=== PATIENT | female | born 1960 | race Caucasian/White ===

== ENCOUNTER 2021-10-21 11:20 | Inpatient (IN) | payer OTHER ==
[~2021-10-21] VITALS: Ht 165.1 cm; Wt 74.4 kg
--- NOTE | 2021-10-21 11:20 | NUR ---
PT ERMELINDA FROM [facility] SENT BY C/O SOB SINCE SUNDAY... PT IS AAOX3, NOT IN RESPIRATORY DISTRESS, HOOKED TO O2 AT 3LPM VIA NC AND HOOKED TO SHOE SPRAYER, KEPT RESTED AND COMFORTABLE. WILL CONTINUE TO MONITOR.
--- NOTE | 2021-10-21 12:00 | NUR ---
IV LINE ESTABLISHED BLOOD DRAWN AND SENT TO LAB.
[2021-10-21] MEDS ORDERED: CITR473S PO (12:20)
[2021-10-21] MEDS ORDERED: MONT10TA22 PO (12:20)
[2021-10-21] MEDS ORDERED: NIFE-57 PO (12:20)
[2021-10-21] MEDS ORDERED: METO5TAB7 PO (12:20)
[2021-10-21] MEDS ORDERED: CALC0.253 PO (12:20)
[2021-10-21] MEDS ORDERED: AMIT10TA6 PO (12:20)
[2021-10-21] MEDS ORDERED: ASCO500C17 PO (12:20)
[2021-10-21] MEDS ORDERED: INSU100V7 SQ (12:20)
[2021-10-21] MEDS ORDERED: FERR325T23 PO (12:20)
[2021-10-21] MEDS ORDERED: HYDR-4077 PO (12:20)
[2021-10-21] MEDS ORDERED: METO25TA6 PO (12:20)
[2021-10-21] MEDS ORDERED: INSU100V39 SQ (12:20)
[2021-10-21] MEDS ORDERED: POLY17PO4 PO (12:20)
[2021-10-21] MEDS ORDERED: FEBU40TA3 PO (12:20)
[2021-10-21] MEDS ORDERED: FURO-144 PO (12:20)
[2021-10-21] MEDS ORDERED: FOLI0.8T2 PO (12:20)
[2021-10-21] MEDS ORDERED: FAMO-131 PO (12:20)
[2021-10-21] MEDS ORDERED: PRAV80TA21 PO (12:20)
[2021-10-21] MEDS ORDERED: APIX2.5T PO (12:20)
[2021-10-21] MEDS ORDERED: SEVE800T8 PO (12:20)
[2021-10-21 12:37] LABS: BASOPHILS # (AUTO) 0.1 K/uL (0.0-0.2); EOSINOPHILS % (AUTO) 1.9 % (0.0-6.0); HEMATOCRIT 26 % (33-45); HEMOGLOBIN 8.3 g/dL (11.5-14.8); LYMPHOCYTES # (AUTO) 1.2 K/uL (0.8-4.8); LYMPHOCYTES % (AUTO) 21.5 % (20.0-44.0); MEAN CORPUSCULAR HGB CONC 32 g/dl (31.0-36.0); MEAN CORPUSCULAR VOLUME 86 fL (82-100); MONOCYTES # (AUTO) 0.3 K/uL (0.1-1.30); MONOCYTES % (AUTO) 6.3 % (2.0-12.0); NEUTROPHILS # (AUTO) 3.8 K/uL (1.8-8.9); NEUTROPHILS % (AUTO) 69.3 % (43.0-81.0); PLATELET COUNT (AUTO) 228 K/uL (150-450); RED BLOOD CELL COUNT(AUTO) 3.07 MIL/uL (4.0-5.2); WHITE BLOOD COUNT (AUTO) 5.4 K/uL (4.3-11.0)
[2021-10-21 12:40] LABS: CALCIUM, SERUM 8.5 mg/dL (8.5-10.1); CARBON DIOXIDE 35 mmol/L (21-32); CHLORIDE 100 mmol/L (98-107); CREATININE 4.9 mg/dL (0.6-1.3); GLUCOSE 143 mg/dL (74-106); POTASSIUM 3.9 mmol/L (3.5-5.1); SODIUM SERUM 141 mmol/L (136-145); UREA NITROGEN, BLOOD 60 mg/dL (7-18)
[2021-10-21 12:56] LABS: ALANINE AMINOTRANSFERASE 21 U/L (12-78); ALBUMIN 2.8 g/dL (3.4-5.0); ALKALINE PHOSPHATASE 77 U/L (46-116); ASPARTATE AMINOTRANSFERASE 16 U/L (15-37); BILIRUBIN,DIRECT 0.2 mg/dL (0.0-0.2); BILIRUBIN,TOTAL 0.4 mg/dL (0.2-1.0)
[2021-10-21 13:16] LABS: TOTAL PROTEIN, SERUM 7.4 g/dL (6.4-8.2)
[2021-10-21] MEDS ORDERED: ASPIRIN 81 MG TAB.CHEW PO ONE (13:30)
[2021-10-21] MEDS ORDERED: ASPIRIN 81 MG TAB.CHEW ONE (13:58)
--- NOTE | 2021-10-21 14:56 | NUR ---
NURSING SUP GAVE 106-1.
--- NOTE | 2021-10-21 15:20 | NUR ---
RN NOTES RECEIVED PATIENT VIA GURNEY AT 1520 PM FROM ER. PATIENT NEEDS TO GET STAT DIALYSIS. PATIENT SIGNED THE CONSENT, DR HICKS GAVE THE ORDER TO START THE DIALYSIS. NO PAIN NOTED. O2 NOTED 96 % AT 4 LITER /MIN. VITAL SIGNS WITHIN NORMAL RANGES. IV ACCESS NOTED RIGHT AC ОЛЕГ #18. LEFT UPPER CHEST DIALYSIS SITE. ALL NEEDS ATTENDED. BED IN THE LOWEST POSITION AND LOCKED. SIDE RAILS UP TIMES 2. TABLE AND CALL LIGHT IN REACH. WILL CONTINUE TO MONITOR.
--- NOTE | 2021-10-21 15:25 | NUR ---
REPORT GIVEN TO MARIO ALBERTO LEAL FOR MARTHA.
[2021-10-21 16:00] VITALS: BP 161/82
[2021-10-21] MEDS ORDERED: ONDANSETRON HCL/PF 4 MG/2 ML VIAL IVP PRN (17:00)
[2021-10-21] MEDS ORDERED: ACETAMINOPHEN 325 MG TABLET PO PRN (17:00)
[2021-10-21] MEDS: SEVELAMER CARBONATE 800 MG TABLET PO SCH (17:55)
[2021-10-21] MEDS: CITRIC ACID/SODIUM CITRATE (BICITRA)15 ML UDC PO SCH (18:02)
[2021-10-21] MEDS ORDERED: EPOETIN ALFA-EPBX 10,000 UNIT/ML VIAL IV ONE (19:00)
--- NOTE | 2021-10-21 19:30 | NUR ---
SENIOR ENGINEERING ASSOCIATE CLOSING NOTES PATIENT AWAKE IN BED. NO PAIN NOTED. O2 NOTED 96 % AT 4 LITER /MIN. ON TELE MONITOR READING OF SINUS RHYTHM. VITAL SIGNS WITHIN NORMAL RANGES. IV ACCESS NOTED RIGHT AC ОЛЕГ #18. LEFT UPPER CHEST DIALYSIS SITE. DIALYSIS OUTPUT 2000 ML. NO DISTRESS NOTED. ALL DUE MEDS GIVEN ORDERED. NO SOB NOTED. ALL NEEDS ATTENDED. BED IN THE LOWEST POSITION AND LOCKED. SIDE RAILS UP TIMES 2. TABLE AND CALL LIGHT IN REACH. WILL ENDORSE INCOMING SHIFT FOR MARTHA.
[2021-10-21 20:00] VITALS: BP 160/70
--- NOTE | 2021-10-21 20:00 | NUR ---
MS/TELE/RN RECEIVED PATIENT LYING IN BED AWAKE, ALERT, ORIENTED, COMFORTABLE, NO C/O PAIN, NO DISTRESS NOTED, CALL LIGHT IN REACH. FALL PRECAUTIONS PER PROTOCOL
[2021-10-21] MEDS ORDERED: HEPARIN SODIUM, PORCINE 5000 UNITS/1 ML VIAL SQ SCH (21:00)
[2021-10-21] MEDS: METOPROLOL TARTRATE 25 MG TABLET PO SCH (22:08)
[2021-10-21] MEDS: FUROSEMIDE 40 MG TABLET PO SCH (22:08)
[2021-10-21] MEDS: APIXABAN 2.5 MG TABLET PO SCH (22:09)
[2021-10-21] MEDS: AMITRIPTYLINE HCL 10 MG TABLET PO SCH (22:10)
[2021-10-21] MEDS: ATORVASTATIN 10 MG TABLET PO SCH (22:10)
[2021-10-21] MEDS: hydrALAZINE HCL 50 MG TABLET PO SCH (22:11)
[2021-10-21] MEDS: INSULIN GLARGINE, 100 UNIT/ML CARTRIDGE SQ SCH (22:26)
[2021-10-22] VITALS: BP 132/54
--- NOTE | 2021-10-22 01:53 | NUR ---
MS/TELE/RN PATIENT IS SLEEPING AT THIS TIME, APPEAR COMFORTABLE, NO DISTRESS NOTED, CALL LIGHT IN REACH. WILL CONTINUE TO MONITOR.
[2021-10-22 04:00] VITALS: BP 126/71
[2021-10-22] MEDS: hydrALAZINE HCL 50 MG TABLET PO SCH ×3 (05:41→22:06)
[2021-10-22 06:21] LABS: BASOPHILS # (AUTO) 0.1 K/uL (0.0-0.2); BASOPHILS % (AUTO) 1.1 % (0.0-2.0); EOSINOPHILS % (AUTO) 3.2 % (0.0-6.0); HEMATOCRIT 25 % (33-45); HEMOGLOBIN 8.2 g/dL (11.5-14.8); LYMPHOCYTES # (AUTO) 1.4 K/uL (0.8-4.8); LYMPHOCYTES % (AUTO) 27.5 % (20.0-44.0); MEAN CORPUSCULAR HGB CONC 32 g/dl (31.0-36.0); MEAN CORPUSCULAR VOLUME 86 fL (82-100); MONOCYTES # (AUTO) 0.4 K/uL (0.1-1.30); NEUTROPHILS # (AUTO) 3.1 K/uL (1.8-8.9); NEUTROPHILS % (AUTO) 61.2 % (43.0-81.0); PLATELET COUNT (AUTO) 216 K/uL (150-450); RED BLOOD CELL COUNT(AUTO) 2.94 MIL/uL (4.0-5.2); WHITE BLOOD COUNT (AUTO) 5.1 K/uL (4.3-11.0)
--- NOTE | 2021-10-22 06:47 | NUR ---
MS/TELE/RN PATIENT IS AWAKE, COMFORTABLE, NO DISTRESS NOTED, CALL LIGHT IN REACH, ALL NEEDS ATTENDED AT THIS TIME, WILL CONTINUE TO MONITOR.
[2021-10-22 06:54] LABS: CALCIUM, SERUM 8.5 mg/dL (8.5-10.1); CREATININE 3.5 mg/dL (0.6-1.3); MAGNESIUM 2.5 mg/dL (1.8-2.4); POTASSIUM 3.8 mmol/L (3.5-5.1)
--- NOTE | 2021-10-22 07:30 | NUR ---
CUT OFF TENDER GLASS OPENING NOTES RECEIVED PATIENT IN BED; ALERT, AWAKE AND RESPONSIVE X3. ON OXYGEN INHALATION VIA NASAL CANNULA INFUSING AT 2LPM, TOLERATED WELL. NO SIGNS AND SYMPTOMS OF RESPIRATORY DISTRESS. WITH IV ACCESS ON RIGHT AC G18, SALINE LOCKED; DRY, PATENT AND INTACT. WITH LEFT SUBCLAVIAN AV FISTULA; CLEAN AND DRY. TABLE AND CALL LIGHT WITHIN REACH. BED IS IN LOWEST LOCKED POSITION. SIDE RAILS UP X2. WILL CONTINUE TO MONITOR
--- NOTE | 2021-10-22 07:30 | NUR ---
REHAB DIRECTOR OCCUPATIONAL THERAPIST NOTES PT IN BED, AWAKE, ALERT AND ORIENTED, NO COMPLAINT OF PAIN, NOT IN DISTRESS, ON O2 AT 3LPM VIA N/C, CALL LIGHT WITHIN REACH, KEPT WARM AND COMFORTABLE IN BED.
[2021-10-22 08:00] VITALS: BP 145/61
[2021-10-22] MEDS: SEVELAMER CARBONATE 800 MG TABLET PO SCH ×3 (08:18→17:11)
[2021-10-22] MEDS: ASCORBIC ACID 500 MG TABLET PO SCH (08:19)
[2021-10-22] MEDS: APIXABAN 2.5 MG TABLET PO SCH ×2 (08:19→22:09)
[2021-10-22] MEDS: MONTELUKAST SODIUM (10MG) 10 MG TABLET PO SCH (08:20)
[2021-10-22] MEDS: FUROSEMIDE 40 MG TABLET PO SCH (08:20)
[2021-10-22] MEDS: NIFEdipine XL (30MG) 30 MG TAB PO SCH (08:21)
[2021-10-22] MEDS: FAMOTIDINE (20 MG) 20 MG TABLET PO SCH (08:22)
[2021-10-22] MEDS: METOPROLOL TARTRATE 25 MG TABLET PO SCH ×2 (08:22→22:08)
[2021-10-22] MEDS: CALCITRIOL 0.25 MCG CAPSULE PO SCH (08:22)
[2021-10-22] MEDS: POLYETHYLENE GLYCOL 3350 17 GM POWD.PACK PO SCH (08:23)
[2021-10-22] MEDS: CITRIC ACID/SODIUM CITRATE (BICITRA)15 ML UDC PO SCH (08:23)
[2021-10-22] MEDS ORDERED: METOLAZONE 2.5 MG TABLET PO SCH (09:00)
[2021-10-22] MEDS ORDERED: Medication Not On Formulary EA (Febuxostat 40 MG) PO SCH (09:00)
[2021-10-22] MEDS ORDERED: FERROUS SULFATE (325 MG) 325 MG/TAB TABLET PO SCH (09:00)
[2021-10-22] MEDS: INSULIN GLARGINE, 100 UNIT/ML CARTRIDGE SQ SCH ×2 (10:09→22:10)
[2021-10-22] MEDS: VIT B CMPLX 3/FA/VIT C/BIOTIN 1 TAB TABLET PO SCH (10:16)
[2021-10-22 12:00] VITALS: BP 159/78
--- NOTE | 2021-10-22 14:00 | NUR ---
BILINGUAL TEACHER NOTES PT COMPLETED HEMODIALYSIS, TOLERATED WELL, PT STARTED ON FERRLECIT IV, PT NOW ON 2LPM OF O2 VIA N/C, O2 SAT OF 96%, CALL LIGHT WITHIN REACH, NEEDS ATTENDED.
[2021-10-22] MEDS: SOD FERRIC GLUC 125 MG in IV NS 0.9% 100 ML IV SCH (14:18)
[2021-10-22 15:57] VITALS: BP 144/67
--- NOTE | 2021-10-22 18:45 | NUR ---
ACADEMIC SUPPORT DIRECTOR CLOSING NOTES PATIENT IS IN BED; AWAKE AND RESPONSIVE. WITH STABLE VITAL SIGNS. WITH OXYGEN INHALATION VIA NC AT 2LPM, TOLERATED WELL. ON INFRASTRUCTURE DESIGN ENGINEER; SINUS RHYTHM. WITH IV ACCESS AT RIGHT AC G18. WITH LEFT SUBCLAVIAN DIALYSIS SITE; 3000 ML OUTPUT. ALL DUE MEDS GIVEN ORDERED. NO SHORTNESS OF BREATH NOTED. BED IN LOWEST LOCKED POSITION. SIDE RAILS UP X2. TABLE AND CALL LIGHT WITHIN REACH. ALL NEEDS ATTENDED TO. WILL ENDORSE TO NEXT SHIFT FOR ANY CHANGE OF CONDITION. Addendum: 10/22/21 at 1856 by WAYLON CORNEJO RN 3500 ML DIALYSIS OUTPUT
--- NOTE | 2021-10-22 19:57 | NUR ---
MS/TELE/RN RECEIVE PATIENT AWAKE, ALERT, ORIENTED, COMFORTABLE, NO C/O PAIN, NO DISTRESS NOTED, CALL LIGHT WITHIN REACH, NEEDS ATTENDED AT THIS TIME, WILL MONITOR.
[2021-10-22 20:00] VITALS: BP 165/57
[2021-10-22] MEDS: AMITRIPTYLINE HCL 10 MG TABLET PO SCH (22:05)
[2021-10-22] MEDS: ATORVASTATIN 10 MG TABLET PO SCH (22:05)
--- NOTE | 2021-10-22 23:24 | NUR ---
MS/TELE/RN PATIENT IS SLEEPING AT THIS TIME, APPEAR COMFORTABLE, NO DISTRESS NOTED, CALL LIGHT IN REACH. WILL CONTINUE TO MONITOR.
[2021-10-23] VITALS: BP 127/57
[2021-10-23 04:00] VITALS: BP 136/63
[2021-10-23] MEDS: hydrALAZINE HCL 50 MG TABLET PO SCH ×3 (05:14→21:27)
--- NOTE | 2021-10-23 06:09 | NUR ---
MS/TELE/RN PATIENT IS STILL SLEEPING AT THIS TIME, APPEAR COMFORTABLE, NO DISTRESS NOTED, CALL LIGHT IN REACH, ALL NEEDS ATTENDED AT THIS TIME, WILL CONTINUE TO MONITOR.
[2021-10-23 06:10] LABS: BASOPHILS # (AUTO) 0.1 K/uL (0.0-0.2); BASOPHILS % (AUTO) 1.1 % (0.0-2.0); EOSINOPHILS % (AUTO) 3.1 % (0.0-6.0); HEMATOCRIT 28 % (33-45); HEMOGLOBIN 8.8 g/dL (11.5-14.8); LYMPHOCYTES # (AUTO) 1.7 K/uL (0.8-4.8); LYMPHOCYTES % (AUTO) 27.5 % (20.0-44.0); MEAN CORPUSCULAR HGB CONC 32 g/dl (31.0-36.0); MEAN CORPUSCULAR VOLUME 87 fL (82-100); MONOCYTES # (AUTO) 0.4 K/uL (0.1-1.30); MONOCYTES % (AUTO) 7.1 % (2.0-12.0); NEUTROPHILS # (AUTO) 3.7 K/uL (1.8-8.9); NEUTROPHILS % (AUTO) 61.2 % (43.0-81.0); PLATELET COUNT (AUTO) 208 K/uL (150-450)
[2021-10-23 06:58] LABS: ALBUMIN 2.9 g/dL (3.4-5.0); BILIRUBIN,TOTAL 0.4 mg/dL (0.2-1.0); CALCIUM, SERUM 9.5 mg/dL (8.5-10.1); MAGNESIUM 2.6 mg/dL (1.8-2.4); PHOSPHORUS 2.8 mg/dL (2.5-4.9); POTASSIUM 3.9 mmol/L (3.5-5.1); TOTAL PROTEIN, SERUM 7.1 g/dL (6.4-8.2)
--- NOTE | 2021-10-23 07:54 | NUR ---
TELE/RN OPENING NOTES RECEIVED PATIENT IN BED; ALERT, AWAKE AND RESPONSIVE X4. ON OXYGEN INHALATION VIA NASAL CANNULA INFUSING AT 3LPM, TOLERATED WELL. NO SIGNS AND SYMPTOMS OF RESPIRATORY DISTRESS. WITH IV ACCESS ON RIGHT AC G18, SALINE LOCKED; DRY, PATENT AND INTACT. WITH LEFT SUBCLAVIAN AV FISTULA; CLEAN AND DRY. SAFETY MEASURES IN PLACED: TABLE AND CALL LIGHT WITHIN REACH. BED IS IN LOWEST LOCKED POSITION. SIDE RAILS UP X2. WILL CONTINUE TO MONITOR
[2021-10-23 08:00] VITALS: BP 138/68
[2021-10-23] MEDS: POLYETHYLENE GLYCOL 3350 17 GM POWD.PACK PO SCH (08:20)
[2021-10-23] MEDS: MONTELUKAST SODIUM (10MG) 10 MG TABLET PO SCH (08:20)
[2021-10-23] MEDS: CALCITRIOL 0.25 MCG CAPSULE PO SCH (08:21)
[2021-10-23] MEDS: METOPROLOL TARTRATE 25 MG TABLET PO SCH ×2 (08:21→21:27)
[2021-10-23] MEDS: FAMOTIDINE (20 MG) 20 MG TABLET PO SCH (08:21)
[2021-10-23] MEDS: SEVELAMER CARBONATE 800 MG TABLET PO SCH ×3 (08:21→18:01)
[2021-10-23] MEDS: ASCORBIC ACID 500 MG TABLET PO SCH (08:21)
[2021-10-23] MEDS: NIFEdipine XL (30MG) 30 MG TAB PO SCH (08:21)
[2021-10-23] MEDS: VIT B CMPLX 3/FA/VIT C/BIOTIN 1 TAB TABLET PO SCH (08:21)
[2021-10-23] MEDS: APIXABAN 2.5 MG TABLET PO SCH ×2 (08:28→21:28)
[2021-10-23] MEDS: INSULIN GLARGINE, 100 UNIT/ML CARTRIDGE SQ SCH ×2 (08:32→21:42)
--- NOTE | 2021-10-23 10:00 | NUR ---
PATIENT TRANSFERRED TO [facility]
[2021-10-23] MEDS: SOD FERRIC GLUC 125 MG in IV NS 0.9% 100 ML IV SCH (14:33)
--- NOTE | 2021-10-23 19:14 | NUR ---
MS/RN CLOSING NOTES PATIENT IN BED; ALERT, AWAKE AND RESPONSIVE X4. ON OXYGEN INHALATION VIA NASAL CANNULA INFUSING AT 3LPM, TOLERATED WELL. NO SIGNS AND SYMPTOMS OF RESPIRATORY DISTRESS. WITH IV ACCESS NOW ON RIGHT HAND 22G, SALINE LOCKED; DRY, PATENT AND INTACT. WITH LEFT SUBCLAVIAN AV FISTULA; CLEAN AND DRY. KEPT PATIENT COMFORTABLE ALL THROUGHOUT THE SHIFT AND ALL NEEDS MET. SAFETY MEASURES IN PLACED: TABLE AND CALL LIGHT WITHIN REACH. BED IS IN LOWEST LOCKED POSITION. SIDE RAILS UP X2. WILL ENDORSE TO THE NEXT SHIFT FOR MARTHA.
--- NOTE | 2021-10-23 19:25 | NUR ---
MS RN OPENING NOTES RECEIVED PATIENT LAYING AWAKE IN BED. A/O X 4. PATIENT WITH REGULAR AND UNLABORED BREATHING ON 3 LPM VIA NASAL CANULA, TOLERATED WELL. NO SIGNS AND SYMPTOMS OF DISTRESS NOTED AT THIS TIME. NO COMPLAINS OF PAIN OR DISCOMFORT AT THIS TIME. IV ACCESS R HAND G # 22 SL. IV ACCESS PATENT AND INTACT. SAFETY PRECAUTIONS ENFORCED WITH BED LOCKED AND AT LOWEST POSITION. SIDE RAILS UP X2. CALL LIGHT WITHIN REACH AT ALL TIMES. WILL CONTINUE TO MONITOR PATIENT.
[2021-10-23 20:00] VITALS: BP 180/81
[2021-10-23] MEDS: ATORVASTATIN 10 MG TABLET PO SCH (21:26)
[2021-10-23] MEDS: AMITRIPTYLINE HCL 10 MG TABLET PO SCH (21:27)
[2021-10-24] MEDS: hydrALAZINE HCL 50 MG TABLET PO SCH ×3 (05:13→22:11)
[2021-10-24 06:27] LABS: BASOPHILS % (AUTO) 0.6 % (0.0-2.0); EOSINOPHILS % (AUTO) 2.1 % (0.0-6.0); HEMATOCRIT 29 % (33-45); HEMOGLOBIN 9.1 g/dL (11.5-14.8); LYMPHOCYTES # (AUTO) 1.5 K/uL (0.8-4.8); LYMPHOCYTES % (AUTO) 19.9 % (20.0-44.0); MEAN CORPUSCULAR HGB CONC 32 g/dl (31.0-36.0); MEAN CORPUSCULAR VOLUME 87 fL (82-100); MONOCYTES # (AUTO) 0.5 K/uL (0.1-1.30); MONOCYTES % (AUTO) 6.3 % (2.0-12.0); NEUTROPHILS # (AUTO) 5.2 K/uL (1.8-8.9); NEUTROPHILS % (AUTO) 71.1 % (43.0-81.0); PLATELET COUNT (AUTO) 244 K/uL (150-450); RED BLOOD CELL COUNT(AUTO) 3.33 MIL/uL (4.0-5.2); WHITE BLOOD COUNT (AUTO) 7.4 K/uL (4.3-11.0)
--- NOTE | 2021-10-24 07:15 | NUR ---
MS RN CLOSING NOTES PATIENT STILL LAYING AWAKE IN BED. A/O X 4. PATIENT WITH REGULAR AND UNLABORED BREATHING ON 3 LPM VIA NASAL CANULA, TOLERATED WELL. NO SIGNS AND SYMPTOMS OF DISTRESS NOTED AT THIS TIME. NO COMPLAINS OF PAIN OR DISCOMFORT AT THIS TIME. IV ACCESS R HAND G # 22 SL. IV ACCESS PATENT AND INTACT. SAFETY PRECAUTIONS ENFORCED WITH BED LOCKED AND AT LOWEST POSITION. SIDE RAILS UP X2. CALL LIGHT WITHIN REACH AT ALL TIMES. WILL ENDORSE CONTINUITY OF CARE TO DAY SHIFT NURSE.
--- NOTE | 2021-10-24 07:27 | NUR ---
MS RN OPENING NOTE Patient in bed, asleep. A/O x 4. On O2 at 3 LPM via NC, breathing evenly and unlabored. No SOB or s/s of distress noted. IV access on Right hand #22G, SL intact and patent. Safety precautions in place: bed in low, locked position; siderails up x 2; call light within reach. Will continue to monitor.
[2021-10-24 07:37] LABS: CALCIUM, SERUM 8.9 mg/dL (8.5-10.1); MAGNESIUM 2.3 mg/dL (1.8-2.4); PHOSPHORUS 3.3 mg/dL (2.5-4.9); POTASSIUM 3.8 mmol/L (3.5-5.1)
[2021-10-24 08:00] VITALS: BP 169/70
[2021-10-24] MEDS ORDERED: DEXTROSE 50%-WATER 50 ML DISP.SYRIN IVP ONE (08:30)
--- NOTE | 2021-10-24 08:30 | NUR ---
RN NOTE Received critical value from lab, patient's blood glucose was 47. Blood glucose rechecked via fingerstick, BS is 40. Gave PRN Dextrose 50% and notified Dr. Halle Rivera. No new orders were given.
--- NOTE | 2021-10-24 08:35 | NUR ---
RN NOTE Patient brought to radiology for CTA.
[2021-10-24] MEDS ORDERED: METOPROLOL TARTRATE INJ 5 MG/5 ML AMPUL ONE (08:54)
[2021-10-24] MEDS ORDERED: IOHEXOL-350 100 ML VIAL IV ONE (08:54)
[2021-10-24] MEDS ORDERED: CT SWABBABLE VALVE TRANS SET 1 EA INFUS.SET MC ONE (08:54)
[2021-10-24] MEDS ORDERED: NITROGLYCERIN 0.4 MG/TAB BOTTLE ONE (08:54)
[2021-10-24] MEDS ORDERED: IV NS 0.9% 250 ML IV ONE (08:55)
[2021-10-24] MEDS: INSULIN GLARGINE, 100 UNIT/ML CARTRIDGE SQ SCH (09:00)
[2021-10-24] MEDS: METOPROLOL TARTRATE 25 MG TABLET PO SCH ×2 (09:00→22:12)
[2021-10-24] MEDS: NIFEdipine XL (30MG) 30 MG TAB PO SCH (09:00)
--- NOTE | 2021-10-24 09:00 | NUR ---
RN NOTE Held BP meds, patient is having Hemodialysis right now.
[2021-10-24] MEDS ORDERED: NITROGLYCERIN 0.4 MG/TAB BOTTLE SL ONE (09:30)
[2021-10-24] MEDS ORDERED: METOPROLOL TARTRATE INJ 5 MG/5 ML AMPUL IVP PRN (09:30)
--- NOTE | 2021-10-24 10:00 | NUR ---
RN NOTE Patient's BS rechecked, 77. Will continue to monitor.
--- NOTE | 2021-10-24 10:00 | NUR ---
RN NOTE Patient brought back to room 306-1.
[2021-10-24] MEDS: SEVELAMER CARBONATE 800 MG TABLET PO SCH ×3 (10:06→17:08)
[2021-10-24] MEDS: MONTELUKAST SODIUM (10MG) 10 MG TABLET PO SCH (10:06)
[2021-10-24] MEDS: FAMOTIDINE (20 MG) 20 MG TABLET PO SCH (10:07)
[2021-10-24] MEDS: ASCORBIC ACID 500 MG TABLET PO SCH (10:07)
[2021-10-24] MEDS: VIT B CMPLX 3/FA/VIT C/BIOTIN 1 TAB TABLET PO SCH (10:08)
[2021-10-24] MEDS: POLYETHYLENE GLYCOL 3350 17 GM POWD.PACK PO SCH (10:08)
[2021-10-24] MEDS: CALCITRIOL 0.25 MCG CAPSULE PO SCH (10:08)
[2021-10-24] MEDS: APIXABAN 2.5 MG TABLET PO SCH ×2 (10:14→22:14)
--- NOTE | 2021-10-24 10:29 | NUR ---
WOUND CARE CONSULT: PT PRESENTS WITH SACRAL INTACT DEEP TISSUE INJURY WITH SURROUNDING SCARRING, PRESENT ON ADMISSION. SACRUM IS TENDER TO TOUCH. PT STATES THAT SHE FELL AT ANOTHER FACILITY PRIOR TO ADMISSION HERE. RECOMMENDATIONS MADE FOR SKIN PROTECTION. DISCUSSED WITH NURSING STAFF. PT IS INCONTINENT OF URINE. PT IS NOT ANURIC. SURGICAL CONSULT REQUESTED FROM DR LARA. PT IS ON MARICHUY ISOFLEX LOW AIRLOSS BED. IN AGREEMENT WITH PLAN OF CARE. Addendum: 10/24/21 at 1031 by JAMEEL PORTER WNDNU Amended: Links added.
[2021-10-24] MEDS: Z GUARD REMEDY 4 OZ OINT TP SCH (10:52)
--- NOTE | 2021-10-24 11:09 | NUR ---
RN NOTE Patient complained of nausea, PRN Zofran given. Will continue to monitor.
--- NOTE | 2021-10-24 13:30 | NUR ---
RN NOTE Purewick system attached to patient.
[2021-10-24] MEDS: SOD FERRIC GLUC 125 MG in IV NS 0.9% 100 ML IV SCH (14:08)
[2021-10-24 16:00] VITALS: BP 148/69
--- NOTE | 2021-10-24 19:01 | NUR ---
MS RN CLOSING NOTE Patient in bed, resting comfortably. A/O x 4, able to make needs known. On O2 at 3 LPM via NC, breathing evenly and unlabored. No SOB or s/s of distress noted. IV access on Right hand #22G, SL and LAC #18G SL, both intact and patent. Purewick system in place draining to a yellow colored urine. All needs attended to. due meds given. Safety precautions maintained: bed in low, locked position; siderails up x 2; call light within reach. Will endorse to color developer nurse for MARTHA.
[2021-10-24 20:00] VITALS: BP 128/79
--- NOTE | 2021-10-24 20:01 | NUR ---
MS/TELE/RN PATIENT WAS IN BED AWAKE BUT VERY SLEEPY, I WAS CONCERN ABOUT LOW BLOOD SUGAR, DID ACCU CHECK, 120. PATIENT AT THIS POINT WAS AWAKE, ALERT, ORIENTED, CONVERSES APPROPRIATELY, COMFORTABLE, NO C/O PAIN, NO DISTRESS NOTED, CALL LIGHT IN REACH, FALL PRECAUTIONS PER PROTOCO IMPLEMENTED, NEEDS ATTENDED AT THIS TIME, WILL MONITOR.
[2021-10-24] MEDS: AMITRIPTYLINE HCL 10 MG TABLET PO SCH (22:12)
[2021-10-24] MEDS: ATORVASTATIN 10 MG TABLET PO SCH (22:13)
--- NOTE | 2021-10-24 22:48 | NUR ---
MS/TELE/RN ACCU CHECK BLOOD SUGAR 111, PATIENT HAS LANTUS INSULIN 10 UNIT. I AM NOT COMFORTABLE GIVING THE LANTUS INSULIN BECAUSE PER DAY SHIFT REPORT, BLOOD SUGAR LAST NIGHT WAS 110, LANTUS 1O UNITS WAS GIVEN, BLOOD SUGAR THIS MORNING WAS 45. NOTIFIED NED GUNN NP, PER PADMINI MARINO, HE WILL D/C THEL LANTUS.
--- NOTE | 2021-10-24 23:00 | NUR ---
MS/TELE/RN PATIENT IS SLEEPING, APPEAR COMFORTABLE, NO DISTRESS NOTED, CALL LGHT IN REACH. WILL CONTINUE TO MONITOR.
[2021-10-25 05:51] VITALS: BP 154/63
[2021-10-25] MEDS: hydrALAZINE HCL 50 MG TABLET PO SCH ×3 (05:53→21:48)
--- NOTE | 2021-10-25 06:17 | NUR ---
MS/TELE/RN PATIENT IS STILL SLEEPING, APPEAR COMFORTABLE, NO SIGNS OF DISTRESS NOTED, CALL LIGHT IN REACH. ALL NEEDS ATTENDED AT THIS TIME, WILL CONTINUE TO MONITOR.
--- NOTE | 2021-10-25 07:41 | NUR ---
MS RN OPENING NOTE Patient in bed, awake. A/O x 4, able to make needs known. On O2 at 3 LPM via NC, breathing evenly and unlabored. No SOB or s/s of distress noted. IV access on Right hand #22G, SL and LAC #18G, SL both intact and patent. Purewick system in place draining to a yellow colored urine. Safety precautions in place: bed in low, locked position; siderails up x 2; call light within reach. Will continue to monitor.
[2021-10-25 08:00] VITALS: BP 144/57
[2021-10-25] MEDS: SEVELAMER CARBONATE 800 MG TABLET PO SCH ×3 (08:12→17:37)
[2021-10-25] MEDS: VIT B CMPLX 3/FA/VIT C/BIOTIN 1 TAB TABLET PO SCH (08:12)
[2021-10-25] MEDS: POLYETHYLENE GLYCOL 3350 17 GM POWD.PACK PO SCH (08:12)
[2021-10-25] MEDS: FAMOTIDINE (20 MG) 20 MG TABLET PO SCH (08:12)
[2021-10-25] MEDS: ASCORBIC ACID 500 MG TABLET PO SCH (08:12)
[2021-10-25] MEDS: MONTELUKAST SODIUM (10MG) 10 MG TABLET PO SCH (08:12)
[2021-10-25] MEDS: CALCITRIOL 0.25 MCG CAPSULE PO SCH (08:12)
[2021-10-25] MEDS: NIFEdipine XL (30MG) 30 MG TAB PO SCH (08:13)
[2021-10-25] MEDS: APIXABAN 2.5 MG TABLET PO SCH ×2 (08:17→21:49)
[2021-10-25] MEDS: METOPROLOL TARTRATE 25 MG TABLET PO SCH ×2 (08:24→21:48)
[2021-10-25] MEDS: Z GUARD REMEDY 4 OZ OINT TP PRN (08:28)
[2021-10-25] MEDS: Z GUARD REMEDY 4 OZ OINT TP SCH (08:29)
--- NOTE | 2021-10-25 11:20 | NUR ---
RT NOTE POST ABG RESULTS SHOWN TO JAYCOB RN. PLACED PT BACK ON 2 LPM O2 NC. JAYCOB RN NOTIFIED AND AWARE. NO SOB NOTED AT THIS TIME.
[2021-10-25 11:21] LABS: ABG BASE EXCESS 1.4 mmol/L; ABG OXYGEN SATURATION 72.6 % (92.0-98.5); ABG PCO2 48.9 mmHg (35.0-45.0); ABG PH 7.364 (7.350-7.450); ABG PO2 35.7 mmHg (75.0-100.0); AaDO2 55.5 mmHg; COHb 1.3 % (0.5-1.5); MetHb 0.3 % (0.0-1.5); O2Hb 71.4 % (94.0-97.0); SITE, ABG Left Radial; VENT MODE, BG RA
[2021-10-25] MEDS: SOD FERRIC GLUC 125 MG in IV NS 0.9% 100 ML IV SCH (14:47)
--- NOTE | 2021-10-25 15:30 | NUR ---
RN NOTE Purewick system changed.
[2021-10-25 16:00] VITALS: BP 147/64
--- NOTE | 2021-10-25 18:50 | NUR ---
MS RN CLOSING NOTE Patient in bed, resting. A/O x 4, able to make needs known. On O2 at 3 LPM via NC, breathing evenly and unlabored. No SOB or s/s of distress noted. IV access on Right hand #22G, SL and LAC #18G, SL both intact and patent. Purewick system in place. Mepilex on sacrum replaced, off loading maintained. Due meds given. All needs attended to. Safety precautions in place: bed in low, locked position; siderails up x 2; call light within reach. Will endorse to cage shift manager nurse for MARTHA.
--- NOTE | 2021-10-25 19:45 | NUR ---
MS/TELE/RN PATIENT IS SLEEPING AT THIS TIME, APPEAR COMFORTABLE, BREATHING EVEN AND UNLABORED, NO DISTRESS NOTED, CALL LIGHT IN REACH, WILL MONITOR.
[2021-10-25 20:00] VITALS: BP 148/62
[2021-10-25] MEDS: ATORVASTATIN 10 MG TABLET PO SCH (21:46)
[2021-10-25] MEDS: AMITRIPTYLINE HCL 10 MG TABLET PO SCH (21:46)
[2021-10-26 04:00] VITALS: BP 159/70
[2021-10-26] MEDS: hydrALAZINE HCL 50 MG TABLET PO SCH ×3 (05:14→20:57)
--- NOTE | 2021-10-26 06:11 | NUR ---
MS/TELE/RN PATIENT IS AWAKE AT THIS TIME, ALERT AND ORIENTED, COMFORTABLE, NO C/O PAIN, NO DISTRESS NOTED, CALL LIGHT IN REACH, ALL NEEDS ATTENDED AT THIS TIME, WILL CONTINUE TO MONITOR.
[2021-10-26 06:30] LABS: BASOPHILS # (AUTO) 0.1 K/uL (0.0-0.2); BASOPHILS % (AUTO) 0.8 % (0.0-2.0); EOSINOPHILS % (AUTO) 3.9 % (0.0-6.0); HEMATOCRIT 26 % (33-45); HEMOGLOBIN 8.2 g/dL (11.5-14.8); LYMPHOCYTES # (AUTO) 1.6 K/uL (0.8-4.8); MEAN CORPUSCULAR HGB CONC 31 g/dl (31.0-36.0); MEAN CORPUSCULAR VOLUME 88 fL (82-100); MONOCYTES # (AUTO) 0.5 K/uL (0.1-1.30); MONOCYTES % (AUTO) 6.9 % (2.0-12.0); NEUTROPHILS # (AUTO) 4.7 K/uL (1.8-8.9); NEUTROPHILS % (AUTO) 65.4 % (43.0-81.0); PLATELET COUNT (AUTO) 233 K/uL (150-450); RED BLOOD CELL COUNT(AUTO) 2.97 MIL/uL (4.0-5.2); WHITE BLOOD COUNT (AUTO) 7.2 K/uL (4.3-11.0)
[2021-10-26 07:04] LABS: CALCIUM, SERUM 8.7 mg/dL (8.5-10.1); CREATININE 4.5 mg/dL (0.6-1.3); POTASSIUM 4.6 mmol/L (3.5-5.1)
--- NOTE | 2021-10-26 07:41 | NUR ---
RN OPENING NOTE PATIENT RECEIVED IN BED, AO X 4, IN NO ACUTE DISTRESS NOTED. RESPIRATORY EVEN AND UNLABORED WITH OXYGEN AT 3Ls. SKIN IS WARM TO TOUCH, KEEP CLEAN/DRY, INTACT IV SITE. KEPT ELEVATED HOB FOR ENSURE AIRWAY AND ASPIRATION PRECAUTION, ALSO LOWEST POSITION OF THE BED, S/R UP X 2 FOR SAFETY. ALL SAFETY PRECAUTION APPLIED. CALL LIGHT WITHIN REACH, WILL CONTINUE TO MONITOR
[2021-10-26] MEDS ORDERED: EPOETIN ALFA-EPBX 10,000 UNIT/ML VIAL IV ONE (08:00)
--- NOTE | 2021-10-26 08:00 | NUR ---
RN OPENING NOTE PATIENT RECEIVED IN BED, AO X 4, IN NO ACUTE DISTRESS NOTED. RESPIRATORY EVEN AND UNLABORED ON ROOM AIR. SKIN IS WARM TO TOUCH, KEEP CLEAN/DRY, INTACT IV SITE. KEPT ELEVATED HOB FOR ENSURE AIRWAY AND ASPIRATION PRECAUTION, ALSO LOWEST POSITION OF THE BED, S/R UP X 2 FOR SAFETY. ALL SAFETY PRECAUTION APPLIED. CALL LIGHT WITHIN REACH, WILL CONTINUE TO MONITOR. Addendum: 10/26/21 at 1850 by YENI COWAN RN ERROR
[2021-10-26 08:06] VITALS: BP 142/65
--- NOTE | 2021-10-26 08:13 | NUR ---
PATIENT NOTICED TROPONIN LEVEL 205 CH, DR. TORRE MADE AWARE, NO NEW ORDER AT THIS TIME.
[2021-10-26] MEDS: METOPROLOL TARTRATE 25 MG TABLET PO SCH ×2 (09:00→20:57)
[2021-10-26] MEDS: Z GUARD REMEDY 4 OZ OINT TP SCH (09:00)
[2021-10-26] MEDS: NIFEdipine XL (30MG) 30 MG TAB PO SCH (09:00)
--- NOTE | 2021-10-26 09:30 | NUR ---
PATIENT IS ON HD, HELD BP MEDS.
[2021-10-26] MEDS: POLYETHYLENE GLYCOL 3350 17 GM POWD.PACK PO SCH (09:41)
[2021-10-26] MEDS: FAMOTIDINE (20 MG) 20 MG TABLET PO SCH (09:41)
[2021-10-26] MEDS: SEVELAMER CARBONATE 800 MG TABLET PO SCH ×3 (09:44→17:28)
[2021-10-26] MEDS: VIT B CMPLX 3/FA/VIT C/BIOTIN 1 TAB TABLET PO SCH (09:45)
[2021-10-26] MEDS: ASCORBIC ACID 500 MG TABLET PO SCH (09:45)
[2021-10-26] MEDS: CALCITRIOL 0.25 MCG CAPSULE PO SCH (09:45)
[2021-10-26] MEDS: MONTELUKAST SODIUM (10MG) 10 MG TABLET PO SCH (09:45)
[2021-10-26] MEDS: Z GUARD REMEDY 4 OZ OINT TP PRN (09:47)
--- NOTE | 2021-10-26 12:29 | NUR ---
PATIENT SIGNED ON CONSENT FORM FOR THORACENTESIS.
[2021-10-26] MEDS: SOD FERRIC GLUC 125 MG in IV NS 0.9% 100 ML IV SCH (13:15)
[2021-10-26 16:00] VITALS: BP 160/65
--- NOTE | 2021-10-26 18:36 | NUR ---
RN CLOSING NOTE PATENT IN BED, REMAINS AO X 4, IN NO ACUTE DISTRESS OBSERVED. RESPIRATORY EVEN AND UNLABORED WITH OXYGEN AT 3Ls. SKIN IS WARM TO TOUCH KEEP CLEAN/DRY, INTACT IV SITE. PATIENT HAD HD AND 2LS OUT PUT, NO ADVERSE REACTION OBSERVED. KEPT ELEVATE HOB FOR ASPIRATION PRECAUTION AND ENSURE AIRWAY, ALSO LOWEST POSITION OF THE BED FOR SAFETY. CALL LIGHT WITHIN REACH, WILL ENDORSE TO FIREARMS EXPERT.
--- NOTE | 2021-10-26 19:35 | NUR ---
RN NOTES RECEIVED PATIENT AWAKE ON BED, A/OX4, DENIES PAIN, NO SOB, CALL LIGHT WITHIN REACH, SIDERAILSUPX2, CONTINUE TO MONITOR
[2021-10-26 20:00] VITALS: BP 164/53
[2021-10-26] MEDS: ATORVASTATIN 10 MG TABLET PO SCH (21:00)
[2021-10-26] MEDS: AMITRIPTYLINE HCL 10 MG TABLET PO SCH (21:00)
[2021-10-27] MEDS: hydrALAZINE HCL 50 MG TABLET PO SCH ×3 (06:12→21:36)
[2021-10-27 06:44] LABS: BASOPHILS # (AUTO) 0.1 K/uL (0.0-0.2); BASOPHILS % (AUTO) 1.2 % (0.0-2.0); HEMATOCRIT 27 % (33-45); HEMOGLOBIN 8.7 g/dL (11.5-14.8); LYMPHOCYTES # (AUTO) 1.4 K/uL (0.8-4.8); LYMPHOCYTES % (AUTO) 21.3 % (20.0-44.0); MEAN CORPUSCULAR HGB CONC 32 g/dl (31.0-36.0); MEAN CORPUSCULAR VOLUME 87 fL (82-100); MONOCYTES # (AUTO) 0.5 K/uL (0.1-1.30); NEUTROPHILS # (AUTO) 4.5 K/uL (1.8-8.9); NEUTROPHILS % (AUTO) 67.5 % (43.0-81.0); PLATELET COUNT (AUTO) 220 K/uL (150-450); RED BLOOD CELL COUNT(AUTO) 3.14 MIL/uL (4.0-5.2); WHITE BLOOD COUNT (AUTO) 6.6 K/uL (4.3-11.0)
[2021-10-27 07:06] LABS: CALCIUM, SERUM 9.3 mg/dL (8.5-10.1); CREATININE 4.1 mg/dL (0.6-1.3); POTASSIUM 4.3 mmol/L (3.5-5.1)
--- NOTE | 2021-10-27 07:52 | NUR ---
RN OPENING NOTE PATIENT RECEIVED IN BED, AOX 4, IN NO ACUTE DISTRESS NOTED. RESPIRATORY EVEN AND UNLABORED ON OXYGEN AT 3Ls. SKIN IS WARM TO TOUCH, KEEP CLEAN/DRY, INTACT IV SITE. KEPT ELEVATED HOB FOR ENSURE AIRWAY AND ASPIRATION PRECAUTION, ALSO LOWEST POSITION OF THE BED, S/R UP X 2 FOR SAFETY. ALL SAFETY PRECAUTION APPLIED. CALL LIGHT WITHIN REACH, WILL CONTINUE TO MONITOR.
[2021-10-27 08:00] VITALS: BP 162/85
[2021-10-27] MEDS: POLYETHYLENE GLYCOL 3350 17 GM POWD.PACK PO SCH (08:16)
[2021-10-27] MEDS: FAMOTIDINE (20 MG) 20 MG TABLET PO SCH (08:16)
[2021-10-27] MEDS: CALCITRIOL 0.25 MCG CAPSULE PO SCH (08:16)
[2021-10-27] MEDS: MONTELUKAST SODIUM (10MG) 10 MG TABLET PO SCH (08:16)
[2021-10-27] MEDS: ASCORBIC ACID 500 MG TABLET PO SCH (08:17)
[2021-10-27] MEDS: METOPROLOL TARTRATE 25 MG TABLET PO SCH ×2 (08:17→21:36)
[2021-10-27] MEDS: VIT B CMPLX 3/FA/VIT C/BIOTIN 1 TAB TABLET PO SCH (08:17)
[2021-10-27] MEDS: NIFEdipine XL (30MG) 30 MG TAB PO SCH (08:17)
[2021-10-27] MEDS: SEVELAMER CARBONATE 800 MG TABLET PO SCH ×3 (08:22→17:38)
[2021-10-27] MEDS: Z GUARD REMEDY 4 OZ OINT TP SCH (08:24)
[2021-10-27] MEDS: NEPRO VAN 237 ML CAN PO SCH (13:04)
[2021-10-27 16:00] VITALS: BP 138/74
--- NOTE | 2021-10-27 18:44 | NUR ---
RN CLOSING NOTE PATENT IN BED, REMAINS AO X 4, IN NO ACUTE DISTRESS OBSERVED. RESPIRATORY EVEN AND UNLABORED ON OXYGEN AT 3Ls VIA NC. SKIN IS WARM TO TOUCH KEEP CLEAN/DRY, INTACT IV SITE. SPOKE WITH MELY/US REGARDING THORACENTESIS, AND CONFIRMED PROCEDURE ON TOMORROW IN AM. KEPT ELEVATE HOB FOR ASPIRATION PRECAUTION AND ENSURE AIRWAY, ALSO LOWEST POSITION OF THE BED FOR SAFETY. CALL LIGHT WITHIN REACH, WILL ENDORSE TO SIGNS AND DISPLAYS SALES REPRESENTATIVE.
--- NOTE | 2021-10-27 19:35 | NUR ---
MS RN OPENING NOTE PATIENT RECEIVED AWAKE IN BED. A/OX4. NO S/S OF DISTRESS, BREATHING UNLABORED ON 3L NC. IV WAS REMOVED/DISLODGED PER DAY SHIFT'S ENDORSEMENT TO ME IN REPORT; WILL ATTEMPT TO INSERT A NEW IV. SAFETY MEASURES IN PLACE: BED AT LOWEST POSITION, RAILS UP X3, CALL HARO WITHIN REACH. WILL CONTINUE TO MONITOR PATIENT.
[2021-10-27 19:51] VITALS: BP 151/58
[2021-10-27] MEDS: ATORVASTATIN 10 MG TABLET PO SCH (21:35)
[2021-10-27] MEDS: AMITRIPTYLINE HCL 10 MG TABLET PO SCH (21:35)
--- NOTE | 2021-10-28 05:00 | NUR ---
RN NOTE PATIENT'S BP AND HR TAKEN BY HAND FOR HYDRALAZINE MED DUE: BP 160/66; HR 61. PATIENT STABLE; WILL CONTINUE TO MONITOR PATIENT.
[2021-10-28] MEDS: hydrALAZINE HCL 50 MG TABLET PO SCH ×3 (05:10→21:00)
--- NOTE | 2021-10-28 06:41 | NUR ---
MS RN CLOSING NOTE PATIENT ASLEEP IN BED. A/OX4. NO S/S OF DISTRESS, BREATHING UNLABORED ON 3L NC. RFA #22 SL INTACT AND PATENT. SAFETY MEASURES IN PLACE: BED AT LOWEST POSITION, RAILS UP X3, CALL HARO WITHIN REACH. ALL NEEDS ATTENDED TO. WILL ENDORSE TO FOLLOWING SHIFT FOR MARTHA.
[2021-10-28 06:57] LABS: BASOPHILS # (AUTO) 0.1 K/uL (0.0-0.2); BASOPHILS % (AUTO) 0.8 % (0.0-2.0); EOSINOPHILS % (AUTO) 3.3 % (0.0-6.0); HEMATOCRIT 27 % (33-45); HEMOGLOBIN 8.7 g/dL (11.5-14.8); LYMPHOCYTES # (AUTO) 1.3 K/uL (0.8-4.8); LYMPHOCYTES % (AUTO) 18.7 % (20.0-44.0); MEAN CORPUSCULAR HGB CONC 32 g/dl (31.0-36.0); MEAN CORPUSCULAR VOLUME 87 fL (82-100); MONOCYTES # (AUTO) 0.4 K/uL (0.1-1.30); MONOCYTES % (AUTO) 6.3 % (2.0-12.0); NEUTROPHILS % (AUTO) 70.9 % (43.0-81.0); PLATELET COUNT (AUTO) 225 K/uL (150-450); RED BLOOD CELL COUNT(AUTO) 3.07 MIL/uL (4.0-5.2)
[2021-10-28 07:30] LABS: CALCIUM, SERUM 9.2 mg/dL (8.5-10.1); POTASSIUM 4.4 mmol/L (3.5-5.1)
--- NOTE | 2021-10-28 07:57 | NUR ---
MS/RN OPENING NOTE RECEIVED PATIENT AWAKE IN BED. A/OX4. NO S/S OF DISTRESS, BREATHING UNLABORED ON 3L OXYGEN VIA NASAL CANNULA. IV ACCESS ON RIGHT FA #22G IS INTACT AND PATENT OF SALINE LOCK. HOB ELEVATED FOR COMFORT. SAFETY MEASURES IN PLACE: BED AT LOWEST POSITION, SIDE RAILS UP X3, CALL HARO WITHIN REACH. WILL CONTINUE WITH THE PLAN OF CARE.
[2021-10-28] MEDS: ASCORBIC ACID 500 MG TABLET PO SCH (08:42)
[2021-10-28] MEDS: Z GUARD REMEDY 4 OZ OINT TP SCH (08:42)
[2021-10-28] MEDS: NIFEdipine XL (30MG) 30 MG TAB PO SCH (08:42)
[2021-10-28] MEDS: POLYETHYLENE GLYCOL 3350 17 GM POWD.PACK PO SCH (08:42)
[2021-10-28] MEDS: MONTELUKAST SODIUM (10MG) 10 MG TABLET PO SCH (08:43)
[2021-10-28] MEDS: CALCITRIOL 0.25 MCG CAPSULE PO SCH (08:43)
[2021-10-28] MEDS: SEVELAMER CARBONATE 800 MG TABLET PO SCH ×3 (08:43→17:28)
[2021-10-28] MEDS: VIT B CMPLX 3/FA/VIT C/BIOTIN 1 TAB TABLET PO SCH (08:43)
[2021-10-28] MEDS: FAMOTIDINE (20 MG) 20 MG TABLET PO SCH (08:43)
[2021-10-28] MEDS: NEPRO VAN 237 ML CAN PO SCH (08:43)
[2021-10-28] MEDS: METOPROLOL TARTRATE 25 MG TABLET PO SCH ×2 (08:43→20:59)
[2021-10-28 09:00] VITALS: BP 156/66
--- NOTE | 2021-10-28 19:24 | NUR ---
MS/RN CLOSING NOTE PATIENT AWAKE IN BED. A/OX4. NO S/S OF DISTRESS, BREATHING UNLABORED ON 3L OXYGEN VIA NASAL CANNULA. IV ACCESS ON RIGHT FA #22G IS INTACT AND PATENT OF SALINE LOCK. HOB ELEVATED FOR COMFORT. PATIENT IS FOR DISCHARGE JUST AWAITING EMT CHIP BIN OPERATOR TO GO BACK TO [facility]. SAFETY MEASURES IN PLACE: BED AT LOWEST POSITION, SIDE RAILS UP X3, CALL HARO WITHIN REACH. WILL ENDORSE TO THE NEXT SHIFT.
--- NOTE | 2021-10-28 19:45 | NUR ---
RN OPENING NOTES RECEIVED PT IN BED, AWAKE, UPSET BECAUSE SHE HAS NOT BEEN PICKED UP BY EMS TO GO HOME. AOx4, ABLE TO MAKE NEEDS KNOWN. ON NC 3LPM AND TOLERATING WELL. NO SOB NOTED. NO S/SX OF RESPIRATORY DISTRESS NOTED. IV ACCESS IN RFA #22G. IV IS INTACT, PATENT, AND FLUSHING WELL. SAFETY PRECAUTIONS IN PLACE: BED IN LOWEST, LOCKED POSITIONS, SIDERAILS UP x2, AND BRAKES ON. TABLE AND CALL LIGHT WITHIN REACH. WILL CONTINUE TO MONITOR.
[2021-10-28] MEDS: AMITRIPTYLINE HCL 10 MG TABLET PO SCH (20:59)
[2021-10-28] MEDS: ATORVASTATIN 10 MG TABLET PO SCH (20:59)
--- NOTE | 2021-10-29 00:15 | NUR ---
DUE TO MISCOMMUNICATION BETWEEN AMBULANCE COMPANY AND CASE MANAGEMENT PT COULD NOT BE TRANSPORTED HOME. CHARGE NURSE AND DR. DEWITT AWARE. DR. DEWITT ORDERED HOLD ON DC ORDER. WILL CONTINUE TO MONITOR.
[2021-10-29 05:34] VITALS: BP 151/73
[2021-10-29] MEDS: hydrALAZINE HCL 50 MG TABLET PO SCH (05:34)
[2021-10-29 05:57] LABS: CALCIUM, SERUM 8.6 mg/dL (8.5-10.1); CREATININE 3.9 mg/dL (0.6-1.3); POTASSIUM 4.2 mmol/L (3.5-5.1)
--- NOTE | 2021-10-29 06:14 | NUR ---
MSRN PLACED CALL TO [facility], 0800 AM FOR UTILIZATION MANAGEMENT NURSE CONFIRMED. RN NOTIFIED.
[2021-10-29 06:20] LABS: BASOPHILS # (AUTO) 0.1 K/uL (0.0-0.2); BASOPHILS % (AUTO) 1.2 % (0.0-2.0); EOSINOPHILS % (AUTO) 2.8 % (0.0-6.0); HEMATOCRIT 28 % (33-45); HEMOGLOBIN 8.8 g/dL (11.5-14.8); LYMPHOCYTES # (AUTO) 1.1 K/uL (0.8-4.8); LYMPHOCYTES % (AUTO) 15.8 % (20.0-44.0); MEAN CORPUSCULAR HGB CONC 32 g/dl (31.0-36.0); MEAN CORPUSCULAR VOLUME 87 fL (82-100); MONOCYTES # (AUTO) 0.4 K/uL (0.1-1.30); MONOCYTES % (AUTO) 5.9 % (2.0-12.0); NEUTROPHILS # (AUTO) 5.1 K/uL (1.8-8.9); NEUTROPHILS % (AUTO) 74.3 % (43.0-81.0); PLATELET COUNT (AUTO) 191 K/uL (150-450); RED BLOOD CELL COUNT(AUTO) 3.16 MIL/uL (4.0-5.2); WHITE BLOOD COUNT (AUTO) 6.8 K/uL (4.3-11.0)
--- NOTE | 2021-10-29 07:15 | NUR ---
RN CLOSING NOTES PT IN BED, AWAKE. AOx4, ABLE TO MAKE NEEDS KNOWN. ON NC 3LPM AND TOLERATING WELL. NO SOB NOTED. NO S/SX OF RESPIRATORY DISTRESS NOTED. IV ACCESS IN RFA #22G. IV IS INTACT, PATENT, AND FLUSHING WELL. ALL NEEDS MET. PT KEPT CLEAN AND DRY. SAFETY PRECAUTIONS IN PLACE: BED IN LOWEST, LOCKED POSITIONS, SIDERAILS UP x2, AND BRAKES ON. TABLE AND CALL LIGHT WITHIN REACH. WILL ENDORSE TO ONCOMING SHIFT FOR MARTHA.
--- NOTE | 2021-10-29 08:00 | NUR ---
POMOLOGIST NOTES PATIENT MEDICALLY STABLE FOR DISCHARGE. V/S WNL. ALL BELONGINGS ACCOUNTED FOR AND DOCUMENTS SIGNED. IV ACCESS AND ID BAND REMOVED. PATIENT LEFT FACILITY VIA GURNEY ACCOMPANIED BY 2 EMT.
== END 2021-10-29 08:37 | DRG 280 ==
LOC: ER 11:35 → TELE 15:30 → MED 10-23 09:37
PROVIDERS: ADMIT Nurse Practitioner Acute Care; ATTEND Family Medicine
PROC: 5A1D70Z Performance of Urinary Filtration, Intermittent, Less than 6 Hours Per Day (ICD-10-PCS; principal; 2021-10-21)
DX: I13.2 Hypertensive heart and chronic kidney disease with heart failure and with stage 5 chronic kidney disease, or end stage renal disease (principal); J96.21 Acute and chronic respiratory failure with hypoxia; I21.A1 Myocardial infarction type 2; N18.6 End stage renal disease; I50.33 Acute on chronic diastolic (congestive) heart failure; E44.0 Moderate protein-calorie malnutrition; J90 Pleural effusion, not elsewhere classified; K21.9 Gastro-esophageal reflux disease without esophagitis; J44.9 Chronic obstructive pulmonary disease, unspecified; Z99.2 Dependence on renal dialysis; D63.1 Anemia in chronic kidney disease; E11.22 Type 2 diabetes mellitus with diabetic chronic kidney disease; E88.09 Other disorders of plasma-protein metabolism, not elsewhere classified; I25.10 Atherosclerotic heart disease of native coronary artery without angina pectoris; Z79.01 Long term (current) use of anticoagulants; Z79.4 Long term (current) use of insulin; Z86.16 Personal history of COVID-19; Z87.01 Personal history of pneumonia (recurrent); Z68.27 Body mass index [BMI] 27.0-27.9, adult; L89.156 Pressure-induced deep tissue damage of sacral region; J84.10 Pulmonary fibrosis, unspecified; D71 Functional disorders of polymorphonuclear neutrophils; I27.29 Other secondary pulmonary hypertension
CPT/HCPCS: 36415; 36600; 71045-TC; 71250-TC; 75574; 80048-TC; 80053-TC; 80061-TC; 80076-TC; 82728-TC; 82962-TC; 83540-TC; 83605-TC; 83735-TC; 83880; 84100-TC; 84484-TC; 85025-TC; 86706; 87040-TC; 87081-TC; 87340; 90935-TC; 93307-TC; 93970-TC; 97116-TC; 97530-TC; C9803; G0378; J0885; J1815; J2405; J2916; J3490; J7030; J7050; Q9967